=== PATIENT | male | born 1970 | race Two or more races ===

== ENCOUNTER 2017-05-26 14:33 | Emergency (ER) | payer MEDICAID, OTHER ==
[~2017-05-26] VITALS: Ht 175.3 cm; Wt 101.6 kg
[~2017-05-26 14:33] MED LIST: ASPI81CH43; CARI250T; METF-370; NOR10T; [UNRECOGNIZED DRUG - CODE]
[2017-05-26 14:45] VITALS: BP 163/86
== END 2017-05-26 17:28 | disposition home or self-care (01) ==
LOC: ER 14:41
DX: S63.502A Unspecified sprain of left wrist, initial encounter (principal); I10 Essential (primary) hypertension; Z79.899 Other long term (current) drug therapy; W18.39XA Other fall on same level, initial encounter; Y93.89 Activity, other specified; Y92.89 Other specified places as the place of occurrence of the external cause; Y99.8 Other external cause status
CPT/HCPCS: 73110